=== PATIENT | female | born 1975 | race Caucasian/White ===

== ENCOUNTER 2018-01-29 16:27 | Emergency (ER) | payer MEDICAID ==
[~2018-01-29] VITALS: Ht 170.2 cm; Wt 112.0 kg
[2018-01-29 17:30] VITALS: BP 160/90
== END 2018-01-29 18:04 | disposition home or self-care (01) ==
LOC: ER 16:27
DX: S83.8X2A Sprain of other specified parts of left knee, initial encounter (principal); Z98.51 Tubal ligation status; X58.XXXA Exposure to other specified factors, initial encounter; Y93.01 Activity, walking, marching and hiking; Y92.89 Other specified places as the place of occurrence of the external cause; Y99.8 Other external cause status
CPT/HCPCS: 73562

== ENCOUNTER 2024-02-09 10:01 | Inpatient (IN) | payer MEDICARE, MEDICAID ==
[~2024-02-09] VITALS: Ht 170.2 cm; Wt 90.5 kg
[2024-02-09 10:39] LABS: Basophils # (auto) 0.1 10 ^3/uL (0-0.2); Basophils % (auto) 1.2 % (0.0-2.0); Eosinophils # (auto) 0.1 10 ^3/uL (0-0.8); Eosinophils % (auto) 2.4 % (0.0-7.0); Hemoglobin 13.5 g/dL (12.2-16.2); Lymphocytes # (auto) 1.1 10 ^3/uL (0.4-5.4); Lymphocytes % (auto) 25.3 % (10.0-50.0); Mean Corpuscular Hemoglobin 33.8 pg (28.0-32.0); Mean Corpuscular Hgb Conc. 33.7 g/dL (32.0-36.0); Mean Corpuscular Volume 100.5 fL (80.0-100.0); Monocytes # (auto) 0.3 10 ^3/uL (0-1.3); Monocytes % (auto) 7.1 % (0.0-12.0); Neutrophils # (auto) 2.8 10 ^3/uL (1.6-8.6); Nucleated Red Blood Cells % 0.1 %; Red Blood Cells 3.98 10^6/uL (4.0-5.20); Red Cell Distribution Width 13.5 % (11.8-14.3); White Blood Cell 4.4 10^3/uL (4.4-10.8)
[2024-02-09 11:02] LABS: Chloride 104 mmol/L (98-107); Sodium 138 mmol/L (136-145)
[2024-02-09 11:03] LABS: Anion Gap 2 (5-15); Calcium 9.2 mg/dL (8.5-10.1); Carbon Dioxide 32 mmol/L (20-30)
[2024-02-09 11:07] LABS: Urine Bacteria FEW /hpf (None Seen); Urine Blood Negative /uL (Negative); Urine Clarity Clear (Clear); Urine Protein, UAD Negative (Negative); Urine Specific Gravity 1.007 (1.001-1.035); Urine Urobilinogen Normal (Negative); Urine WBC 1 /hpf (0 - 5)
[2024-02-09 11:08] LABS: Urine Color Light Yellow (Yellow)
[2024-02-09 11:08] LABS: BUN/Creatinine Ratio 14.3 (10.0-20.0); Blood Urea Nitrogen 11 mg/dL (9-23); Glucose 95 mg/dL (74-106)
[2024-02-09] MEDS: methylPREDNISolone SOD SUCC 125 MG/2 ML VL IV ONE (11:57)
[2024-02-09] MEDS ORDERED: NITROGLYCERIN 0.4 MG SL TAB SL PRN (14:45)
[2024-02-09] MEDS ORDERED: ACETAMINOPHEN 325 MG TAB PO PRN (14:45)
[2024-02-09] MEDS ORDERED: ONDANSETRON HCL 4 MG/2 ML VIAL IV PRN (14:45)
[2024-02-09] MEDS ORDERED: MORPHINE SULFATE INJ 2 MG/ml SYRG IV PRN (14:45)
[2024-02-09] MEDS ORDERED: DOCUSATE SOD 100 MG CAP PO PRN (14:45)
[2024-02-09] MEDS ORDERED: LORazepam 2MG/ML-1ML VIAL IV PRN (18:45)
[2024-02-09] MEDS: methylPREDNISolone SOD SUCC 1,000 MG in SODIUM CHL 0.9% 250 ML IV SCH (20:32)
[2024-02-09] MEDS: FAMOTIDINE 20 MG TAB PO SCH (21:44)
[2024-02-09] MEDS: SODIUM CHLOR 0.9% PF (SALINE LOCK) 10ML VIAL/SYR IV SCH (21:45)
[2024-02-10] VITALS (9 sets, daily range): BP systolic 111–130; BP diastolic 62–86; PULSE 58–108; RESP 16–19; TEMP 97.8–98.1; O2SAT 95–99
[2024-02-10] MEDS ORDERED: AMAN100C22 PO (02:53)
[2024-02-10] MEDS ORDERED: SUMA50TA16 PO (02:53)
[2024-02-10 06:48] LABS: Basophils # (auto) 0 10 ^3/uL (0-0.2); Basophils % (auto) 0.1 % (0.0-2.0); Eosinophils # (auto) 0 10 ^3/uL (0-0.8); Hemoglobin 13.2 g/dL (12.2-16.2); Lymphocytes # (auto) 0.5 10 ^3/uL (0.4-5.4); Lymphocytes % (auto) 6.2 % (10.0-50.0); Mean Corpuscular Hemoglobin 33.7 pg (28.0-32.0); Mean Corpuscular Hgb Conc. 33.9 g/dL (32.0-36.0); Mean Corpuscular Volume 99.2 fL (80.0-100.0); Monocytes # (auto) 0.1 10 ^3/uL (0-1.3); Monocytes % (auto) 0.7 % (0.0-12.0); Red Blood Cells 3.93 10^6/uL (4.0-5.20); Red Cell Distribution Width 13.3 % (11.8-14.3); White Blood Cell 7.5 10^3/uL (4.4-10.8)
[2024-02-10 07:07] LABS: Alanine Aminotransferase 20 U/L (7-40); Albumin 3.9 g/dL (3.2-4.8); Alkaline Phosphatase 28 U/L (46-116); Anion Gap 6 (5-15); Aspartate Aminotransferase 8 U/L (13-40); BUN/Creatinine Ratio 17.3 (10.0-20.0); Bilirubin, Total 0.5 mg/dL (0.2-1.0); Blood Urea Nitrogen 13 mg/dL (9-23); Calcium 9.5 mg/dL (8.7-10.4); Carbon Dioxide 26 mmol/L (20-30); Chloride 106 mmol/L (98-107); Glucose 166 mg/dL (74-106); Potassium 3.9 mmol/L (3.5-5.1); Sodium 138 mmol/L (136-145); Total Protein 6.7 g/dL (5.7-8.2)
[2024-02-10] MEDS ORDERED: methylPREDNISolone SOD SUCC 125 MG/2 ML VL IV SCH (10:00)
[2024-02-10] MEDS ORDERED: TEMAZEPAM 15 MG CAP PO PRN (23:00)
[2024-02-11] VITALS (8 sets, daily range): BP systolic 108–125; BP diastolic 64–78; PULSE 65–89; RESP 18–20; TEMP 97.7–98.3; O2SAT 95–99
[2024-02-11 07:34] LABS: Basophils # (auto) 0 10 ^3/uL (0-0.2); Basophils % (auto) 0.1 % (0.0-2.0); Eosinophils # (auto) 0 10 ^3/uL (0-0.8); Hematocrit 38.9 % (36.0-46.0); Hemoglobin 13.1 g/dL (12.2-16.2); Lymphocytes # (auto) 0.4 10 ^3/uL (0.4-5.4); Lymphocytes % (auto) 6.1 % (10.0-50.0); Mean Corpuscular Hemoglobin 33.9 pg (28.0-32.0); Mean Corpuscular Hgb Conc. 33.7 g/dL (32.0-36.0); Mean Corpuscular Volume 100.5 fL (80.0-100.0); Monocytes # (auto) 0 10 ^3/uL (0-1.3); Monocytes % (auto) 0.6 % (0.0-12.0); Neutrophils # (auto) 6.7 10 ^3/uL (1.6-8.6); Neutrophils % (auto) 93.2 % (37.0-80.0); Red Blood Cells 3.87 10^6/uL (4.0-5.20); Red Cell Distribution Width 13.7 % (11.8-14.3); White Blood Cell 7.2 10^3/uL (4.4-10.8)
[2024-02-11 07:36] LABS: Chloride 107 mmol/L (98-107); Potassium 4.3 mmol/L (3.5-5.1); Sodium 138 mmol/L (136-145)
[2024-02-11 07:37] LABS: Anion Gap 5 (5-15); Calcium 9.2 mg/dL (8.5-10.1); Carbon Dioxide 26 mmol/L (20-30)
[2024-02-11 07:42] LABS: BUN/Creatinine Ratio 15.1 (10.0-20.0); Blood Urea Nitrogen 11 mg/dL (9-23); Glucose 163 mg/dL (74-106); Triglycerides 42 mg/dL (< 150)
[2024-02-11 07:43] LABS: LDL Cholesterol 142 mg/dL (< 100)
[2024-02-11 07:44] LABS: Cholesterol 230 mg/dL (< 200); HDL Cholesterol 71 mg/dL (40-59)
[2024-02-11 17:14] LABS: Folate (Folic Acid) 22.22 ng/mL (>5.38)
[2024-02-11 17:16] LABS: Free T4 (Free Thyroxine) 1.15 ng/dL (0.89-1.76)
[2024-02-11] MEDS: HYDROcodone-ACET 5/325MG TAB PO PRN (21:06)
[2024-02-12 06:47] LABS: Basophils # (auto) 0 10 ^3/uL (0-0.2); Eosinophils # (auto) 0 10 ^3/uL (0-0.8); Lymphocytes # (auto) 0.4 10 ^3/uL (0.4-5.4); Monocytes # (auto) 0 10 ^3/uL (0-1.3); Red Cell Distribution Width 14.1 % (11.8-14.3); White Blood Cell 4.6 10^3/uL (4.4-10.8)
[2024-02-12 06:49] LABS: Basophils % (auto) 0.1 % (0.0-2.0); Hematocrit 37.7 % (36.0-46.0); Hemoglobin 12.7 g/dL (12.2-16.2); Lymphocytes % (auto) 9.3 % (10.0-50.0); Mean Corpuscular Hemoglobin 33.8 pg (28.0-32.0); Mean Corpuscular Hgb Conc. 33.6 g/dL (32.0-36.0); Mean Corpuscular Volume 100.7 fL (80.0-100.0); Monocytes % (auto) 1.1 % (0.0-12.0); Neutrophils # (auto) 4.1 10 ^3/uL (1.6-8.6); Neutrophils % (auto) 89.5 % (37.0-80.0); Red Blood Cells 3.74 10^6/uL (4.0-5.20)
[2024-02-12 07:10] LABS: Anion Gap 2 (5-15); Calcium 9.1 mg/dL (8.5-10.1); Carbon Dioxide 30 mmol/L (20-30); Chloride 106 mmol/L (98-107); Potassium 4.6 mmol/L (3.5-5.1); Sodium 138 mmol/L (136-145)
[2024-02-12 07:16] LABS: BUN/Creatinine Ratio 16.9 (10.0-20.0); Blood Urea Nitrogen 12 mg/dL (9-23); Glucose 158 mg/dL (74-106)
[2024-02-12 09:00] VITALS: BP 123/83; PULSE 66; RESP 20; TEMP 97.9; O2SAT 99
[2024-02-12 13:00] VITALS: BP 98/56; PULSE 57; RESP 18; TEMP 98; O2SAT 100
[2024-02-12 17:00] VITALS: BP 109/59; PULSE 94; RESP 20; TEMP 98; O2SAT 98
[2024-02-12 20:00] VITALS: PULSE 77; RESP 20; O2SAT 96
[2024-02-12 21:00] VITALS: BP 123/77; PULSE 77; RESP 20; TEMP 97.8; O2SAT 96
[2024-02-13 01:00] VITALS: BP 108/60; PULSE 69; RESP 20; TEMP 97.9; O2SAT 97
[2024-02-13 05:00] VITALS: BP 118/72; PULSE 78; RESP 20; TEMP 98.1; O2SAT 96
[2024-02-13 06:27] LABS: Anion Gap 1 (5-15); Carbon Dioxide 31 mmol/L (20-30); Chloride 107 mmol/L (98-107); Potassium 4.4 mmol/L (3.5-5.1); Sodium 139 mmol/L (136-145)
[2024-02-13 06:33] LABS: Blood Urea Nitrogen 16 mg/dL (9-23); Glucose 154 mg/dL (74-106)
[2024-02-13 06:56] LABS: Basophils # (auto) 0 10 ^3/uL (0-0.2); Basophils % (auto) 0.1 % (0.0-2.0); Eosinophils # (auto) 0 10 ^3/uL (0-0.8); Hematocrit 39.4 % (36.0-46.0); Hemoglobin 13.2 g/dL (12.2-16.2); Lymphocytes # (auto) 0.4 10 ^3/uL (0.4-5.4); Lymphocytes % (auto) 8.7 % (10.0-50.0); Mean Corpuscular Hemoglobin 33.8 pg (28.0-32.0); Mean Corpuscular Hgb Conc. 33.5 g/dL (32.0-36.0); Mean Corpuscular Volume 101.1 fL (80.0-100.0); Monocytes # (auto) 0 10 ^3/uL (0-1.3); Monocytes % (auto) 0.8 % (0.0-12.0); Neutrophils # (auto) 4.1 10 ^3/uL (1.6-8.6); Neutrophils % (auto) 90.4 % (37.0-80.0); Red Blood Cells 3.89 10^6/uL (4.0-5.20); Red Cell Distribution Width 13.9 % (11.8-14.3); White Blood Cell 4.6 10^3/uL (4.4-10.8)
[2024-02-13 08:10] VITALS: RESP 17
[2024-02-13 09:00] VITALS: BP 124/82; PULSE 67; RESP 17; TEMP 98.1; O2SAT 99
[2024-02-13] MEDS ORDERED: METH4PAK PO (12:12)
[2024-02-13] MEDS: GADOTERATE MEG 10 MMOL/20ml INJ (0.5MMOL/ml) IV ONE (12:23)
[2024-02-13] MEDS: methylPREDNISolone SOD SUCC 1,000 MG in SODIUM CHL 0.9% 250 ML IV SCH (12:44)
[2024-02-13 13:00] VITALS: BP 125/76; PULSE 68; RESP 16; TEMP 98.1; O2SAT 98
[2024-02-13] MEDS ORDERED: methylPREDNISolone SOD SUCC 1,000 MG in SODIUM CHL 0.9% 250 ML IV SCH (14:00)
== END 2024-02-13 14:27 | disposition home or self-care (01) | DRG 60 ==
LOC: ER 10:01 → TELE 14:47 → TELE-EAST 02-10 01:56 → EAST 02-11 15:16
PROVIDERS: ADMIT Internal Medicine; ATTEND Internal Medicine
DX: G35 Multiple sclerosis (principal); E66.9 Obesity, unspecified; F17.200 Nicotine dependence, unspecified, uncomplicated; E78.5 Hyperlipidemia, unspecified; Z82.49 Family history of ischemic heart disease and other diseases of the circulatory system; Z98.84 Bariatric surgery status; Z68.31 Body mass index [BMI] 31.0-31.9, adult
CPT/HCPCS: 36415; 70553; 71046; 72142; 72157; 80048; 80053; 80061; 81001; 82306; 82607; 82746; 83036; 84439; 84443; 85025; 93005; 96365; 96375; 97110; 97116; 97163; 97530; G0378

== ENCOUNTER 2025-07-09 17:18 | Emergency (ER) | payer MEDICARE, MEDICAID ==
[~2025-07-09] VITALS: Ht 170.2 cm; Wt 85.0 kg
[~2025-07-09 17:18] MED LIST: AMAN100C22 PO; METH4PAK PO; SUMA50TA16 PO
--- NOTE | 2025-07-09 19:06 | ED.PDOC ---
History of Present Illness HPI Comments 49-year-old female who came to ER for left flank pains. Patient has been experiencing left flank pain for the past 3 days. Denies any nausea, vomiting or changes in bowel habits. Denies any urinary symptoms or fever. Patient does have history of multiple sclerosis, states he had similar pain before, and was relieved by a shot of steroids Chief Complaint: Flank Pain Time Seen by MD: 19:05 Primary Care Provider: Out of area Reviewed Notes: Nurses Notes Allergies: Coded Allergies: NO KNOWN ALLERGIES (Unverified , 07/29/11) Home Meds Active Scripts Gabapentin (Once-Daily) (Gabapentin) 300 Mg Tab, 300 MG PO Q6HP PRN, #60 TAB Prov:ARACELIS PACHECO MD 07/09/25 Methylprednisolone (Medrol Dosepak) 4 Mg Wilber, 4 MG PO UD, #21 TAB UAD Prov:ARACELIS PACHECO MD 07/09/25 Methylprednisolone (Medrol Dosepak) 4 Mg Wilber, 4 MG PO UD for 6 Days, #21 TAB UAD Prov:MUKUL SHEFFIELD RESIDENT 02/13/24 Reported Medications Sumatriptan Succinate (Sumatriptan Succinate) 50 Mg Tab, 50 MG PO BID PRN for FOR HEADACHE, MG 02/10/24 Amantadine Hcl (Amantadine Hcl) 100 Mg Cap, 100 MG PO Q12HR for 30 Days, MG 02/10/24 Information Source: Patient Mode of Arrival: Wheelchair Severity: Moderate Timing: Days Past Medical History Past Medical History (Other): Multiple sclerosis, Rodger bar virus Surgical History: BTL SENIOR PROGRAMMER History: No Pertinent SENIOR PROGRAMMER History Family History Family History: No family hx of HTN Social History Smoker: Non-Smoker Alcohol: Denies ETOH Use Drugs: Denies Drug Use Lives In: Home Constitutional: denies: chills, diaphoresis, fatigue, fever, malaise, sweats, weakness, others EENTM: denies: blurred vision, double vision, ear bleeding, ear discharge, ear drainage, ear pain, ear ringing, eye pain, eye redness, hearing loss, mouth pain, mouth swelling, nasal discharge, nose bleeding, nose congestion, nose pain, photophobia, tearing, throat pain, throat swelling, voice changes, others Respiratory: denies: cough, hemoptysis, orthopnea, SOB at rest, shortness of breath, SOB with excertion, stridor, wheezing, others Cardiovascular: denies: chest pain, dizzy spells, diaphoresis, Dyspnea on exertion, edema, irregular heart beat, left arm pain, lightheadedness, palpitations, PND, syncope, others Gastrointestinal: denies: abdomen distended, abdominal pain, blood streaked bowels, constipated, diarrhea, dysphagia, difficulty swallowing, hematemesis, melena, nausea, poor appetite, poor fluid intake, rectal bleeding, rectal pain, vomiting, others Genitourinary: reports: flank pain (Left); denies: abnormal vagina bleeding, burning, dyspareunia, dysuria, frequency, hematuria, incontinence, pain, , vagina discharge, urgency, others Neurological: denies: dizziness, fainting, headache, left sided numbness, left sided weakness, numbness, paresthesia, pre-existing deficit, right sided numbness, right sided weakness, seizure, speech problems, tingling, tremors, weakness, others Musculoskeletal: denies: back pain, gout, joint pain, joint swelling, muscle pain, muscle stiffness, neck pain, others Integumetry: denies: bruises, change in color, change in hair/nails, dryness, laceration, lesions, lumps, rash, wounds, others Allergic/Immunocompromised: denies: Difficulty Healing, Frequent Infections, Hives, Itching, others Hematologic/Lymphatic: denies: anemia, blood clots, easy bleeding, easy bruising, swollen glands, others Endocrine: denies: excessive hunger, excessive sweating, excessive thirst, excessive urination, flushing, intolerance to cold, intolerance to heat, unexplained weight gain, unexplained weight loss, others Psychiatric: denies: anxiety, bipolar disorder, depression, hopeless, panic disorder, schizophrenia, sleepless, suicidal, others Physical Exam General Appearance: No Apparent Distress, Normal HEENT: Normal ENT Inspection, Pharynx Normal, TMs Normal Neck: Full Range of Motion, Non-Tender, Normal, Normal Inspection Respiratory: Chest Non-Tender, Lungs Clear, No Accessory Muscle Use, No Respiratory Distress, Normal Breath Sounds Cardiovascular: No Edema, No JVD, No Murmur, No Gallop, Normal Peripheral Pulses, Regular Rate/Rhythm Breast Exam: Deferred Gastrointestinal: No Organomegaly, No Pulsatile Mass, Normal Bowel Sounds, Soft, Tenderness (Left CVA) Genitalia: Deferred Pelvic: Deferred Rectal: Deferred Extremities: No calf tenderness, Normal capillary refill, Normal inspection, Normal range of motion, Non-tender, No pedal edema Musculoskeletal : Apperance: Normal Neurologic: Alert, slasher tender II-XII nml as Tested, No Motor Deficits, Normal Affect, Normal Mood, No Sensory Deficits Cerebellar Function: Normal Reflexes: Normal Skin: Dry, Normal Color, Warm Lymphatic: No Adenopathy Was a procedure done? Was a procedure done?: No Differential Dx Considerations may include: Anemia, electrolyte imbalance, multiple sclerosis, flank pain, UTI X-Ray, Labs, Meds, VS Vital Signs Date Time Temp Pulse Resp B/P (MAP) Pulse Ox O2 Delivery O2 Flow Rate FiO2 07/09/25 23:36 97.4 52 18 140/72 (94) 99 97.4 07/09/25 20:47 97.9 64 18 132/89 (103) 100 97.9 07/09/25 20:47 64 18 100 Room Air* 0 21 07/09/25 17:19 97.8 75 18 150/89 99 97.8 Lab Test 07/10/25 01:23 07/09/25 19:35 Range/Units Urine Color Light-yellow Yellow Urine Clarity Clear Clear Urine pH 5.5 5.0-9.0 Urine Specific Crete 1.022 1.001-1.035 Urine Protein Negative Negative Urine Ketones Negative Negative Urine Blood Negative Negative /uL Urine Nitrite Negative Negative Urine Bilirubin Negative Negative Urine Urobilinogen Normal Negative mg/dL Urine Leukocyte Esterase Negative Negative /uL Urine RBC None seen 0 - 4 /hpf Urine Microscopic WBC 1 0-5 /HPF Urine Squamous Epithelial Cells Few <5 /hpf Urine Bacteria None seen None Seen /hpf Urine Hyaline Casts Few 0 - 2 /lpf Urine Mucus Few None Seen Urine Glucose Normal Normal mg/dL White Blood Count 4.6 4.4-10.8 10^3/uL Red Blood Count 4.18 4.0-5.20 10^6/uL Hemoglobin 13.8 12.2-16.2 g/dL Hematocrit 40.8 36.0-46.0 % Mean Corpuscular Volume 97.6 80.0-100.0 fL Mean Corpuscular Hemoglobin 32.9 H 28.0-32.0 pg Mean Corpuscular Hemoglobin Concent 33.7 32.0-36.0 g/dL Red Cell Distribution Width 13.7 11.8-14.3 % Platelet Count 206 140-450 10^3/uL Mean Platelet Volume 7.5 6.9-10.8 fL Neutrophils (%) (Auto) 54.6 37.0-80.0 % Lymphocytes (%) (Auto) 34.1 10.0-50.0 % Monocytes (%) (Auto) 7.3 0.0-12.0 % Eosinophils (%) (Auto) 3.3 0.0-7.0 % Basophils (%) (Auto) 0.7 0.0-2.0 % Neutrophils # (Auto) 2.5 1.6-8.6 10 ^3/uL Lymphocytes # (Auto) 1.6 0.4-5.4 10 ^3/uL Monocytes # (Auto) 0.3 0-1.3 10 ^3/uL Eosinophils # (Auto) 0.2 0-0.8 10 ^3/uL Basophils # (Auto) 0 0-0.2 10 ^3/uL Nucleated Red Blood Cells 0.0 % Sodium Level 139 136-145 mmol/L Potassium Level 4.1 3.5-5.1 mmol/L Chloride Level 104 98-107 mmol/L Carbon Dioxide Level 28 20-31 mmol/L Anion Gap 7 5-15 Blood Urea Nitrogen 10 9-23 mg/dL Creatinine 0.76 0.550-1.02 mg/dL Glomerular Filtration Rate Calc 96 >90 mL/min BUN/Creatinine Ratio 13.2 10.0-20.0 Serum Glucose 91 74-106 mg/dL Calcium Level 9.2 8.7-10.4 mg/dL Total Bilirubin 0.5 0.2-1.0 mg/dL Aspartate Amino Transferase (AST) 15 13-40 U/L Alanine Aminotransferase (ALT) 14 7-40 U/L Alkaline Phosphatase 35 L 46-116 U/L Total Protein 6.9 5.7-8.2 g/dL Albumin 4.0 3.2-4.8 g/dL Lipase 94 H 12-53 U/L Current Medications Medications (Trade) Dose Ordered Sig/Maty Route Start Time Stop Time Status Last Admin Sodium Chloride 1,000 ml @ 1,000 mls/hr Q1H ONCE IVB 07/09/25 19:00 07/09/25 19:59 DC 07/09/25 21:01 Methylprednisolone Sodium Succinate (Solu Medrol) 125 mg ONCE ONCE IV 07/09/25 19:00 07/09/25 19:01 DC 07/09/25 21:01 Time of 1ST Reevaluation: 19:03 Reevaluation 1ST: Unchanged Patient Education/Counseling: Diagnosis, Treatment Family Education/Counseling: No Family Present SEPSIS Sepsis Screen Date sepsis recognized/suspect: Jul 09, 2025 Time Sepsis recognized/suspect: 1720 Recent Procedure: No On Antibiotic Therapy: No Respiratory Rate >20: No Heart Rate >90: No Temp<36 C (96.8 F) or >38.3 C: No SBP <90 or MAP <65 mmHG: No New Acute Mental Status Change: No Is the patient on CPAP, BIPAP,: No Vital Signs Date Time Temp Pulse Resp B/P (MAP) Pulse Ox O2 Delivery O2 Flow Rate FiO2 07/09/25 23:36 97.4 52 18 140/72 (94) 99 97.4 07/09/25 20:47 97.9 64 18 132/89 (103) 100 97.9 07/09/25 20:47 64 18 100 Room Air* 0 21 07/09/25 17:19 97.8 75 18 150/89 99 97.8 Laboratory Tests Test 07/09/25 19:35 White Blood Count 4.6 10^3/uL (4.4-10.8) Medications Medications Dose Ordered Sig/Maty Route Start Time Stop Time Status Last Admin Dose Admin Methylprednisolone Sodium Succinate 125 mg ONCE ONCE IV 07/09/25 19:00 07/09/25 19:01 DC 07/09/25 21:01 Sodium Chloride 1,000 ml @ 1,000 mls/hr Q1H ONCE IVB 07/09/25 19:00 07/09/25 19:59 DC 07/09/25 21:01 Departure 1 Departure Time of Disposition: 21:00 Impression: Primary Impression: Left flank pain Additional Impression: Multiple sclerosis exacerbation Disposition: 01 HOME / SELF CARE / HOMELESS Condition: Stable e-Prescriptions Gabapentin (Once-Daily) (Gabapentin) 300 Mg Tab 300 MG PO Q6HP PRN, #60 TAB Prov: ARACELIS PACHECO MD 07/09/25 Methylprednisolone (Medrol Dosepak) 4 Mg Wilber 4 MG PO UD, #21 TAB UAD Prov: ARACELIS PACHECO MD 07/09/25 Discharged With: Self Critical Care Note Critical Care Time?: No Stability Stability form required: No Heart Score Heart Score: Heart Score Response (Comments) Value History N/A 0 EKG N/A 0 Age N/A 0 Risk Factors N/A 0 Troponin N/A 0 Total 0 I personally scribed for ARACELIS PACHECO MD ([email or web address]) on 07/09/25 at 19:05. Electronically submitted by Jose F Moreira ([email or web address]). ARACELIS PACHECO MD Jul 09, 2025 19:05
[2025-07-09 20:02] LABS: Hematocrit 40.8 % (36.0-46.0); Hemoglobin 13.8 g/dL (12.2-16.2); Mean Corpuscular Hemoglobin 32.9 pg (28.0-32.0); Mean Corpuscular Volume 97.6 fL (80.0-100.0); Nucleated Red Blood Cells % 0.0 %
[2025-07-09 20:15] LABS: Alanine Aminotransferase 14 U/L (7-40); Albumin 4.0 g/dL (3.2-4.8); Anion Gap 7 (5-15); BUN/Creatinine Ratio 13.2 (10.0-20.0); Bilirubin, Total 0.5 mg/dL (0.2-1.0); Blood Urea Nitrogen 10 mg/dL (9-23); Calcium 9.2 mg/dL (8.7-10.4); Carbon Dioxide 28 mmol/L (20-31); Chloride 104 mmol/L (98-107); Glucose 91 mg/dL (74-106); Potassium 4.1 mmol/L (3.5-5.1); Sodium 139 mmol/L (136-145); Total Protein 6.9 g/dL (5.7-8.2)
[2025-07-09 20:19] LABS: Alkaline Phosphatase 35 U/L (46-116); Lipase 94 U/L (12-53)
[2025-07-09 20:47] VITALS: PULSE 64; RESP 18; O2SAT 100
[2025-07-09] MEDS: methylPREDNISolone SOD SUCC 125 MG/2 ML VL IV ONE (21:01)
[2025-07-09] MEDS: SODIUM CHLORIDE 0.9% 1,000 ML IVB ONE (21:01)
[2025-07-09 23:36] VITALS: BP 140/72; PULSE 52; RESP 18; TEMP 97.4; O2SAT 99
[2025-07-09] MEDS ORDERED: GABA300T4 PO (23:38)
[2025-07-09] MEDS ORDERED: METH4PAK PO (23:38)
[2025-07-10 01:44] LABS: Urine Protein, UAD Negative (Negative)
== END 2025-07-09 23:46 | disposition home or self-care (01) ==
LOC: ER 17:18
DX: G35.D Multiple sclerosis, unspecified (principal); R10.9 Unspecified abdominal pain; Z98.51 Tubal ligation status; Z79.899 Other long term (current) drug therapy
CPT/HCPCS: 36415; 80053; 81001; 83690; 85025; 96361; 96374; 99283; J2919; J7030